=== PATIENT | female | born 1990 | race Caucasian/White ===

== ENCOUNTER 2016-10-16 12:30 | Emergency (ER) | payer MEDICAID ==
[2016-10-16 12:43] VITALS: BP 125/64
--- NOTE | 2016-10-16 13:46 | ED Physician Documentation ---
PD HPI UPPER EXT INJURY - Stated complaint Stated Complaint: L ARM INJ - Chief complaint Chief Complaint: Ext Problem - History obtained from History obtained from: Patient - History of Present Illness Location: Other (She was pulling a box off a shelf yesterday in her garage and the box kind of fell on her and she felt a pop in the back of the left shoulder and has persistent pain there that is much worse if she moves the left shoulder. No other injuries.) Review of Systems Constitutional: denies: Fever, Chills Cardiac: denies: Chest pain / pressure, Palpitations Respiratory: denies: Dyspnea, Cough GI: denies: Abdominal Pain : denies: Now [facility] PD PAST MEDICAL HISTORY - Present Medications Home Medications: Ambulatory Orders Medication Instructions Recorded Confirmed HYDROcod/ACETAM 5/325 [Sherman 5/325] 1 - 2 ea PO Q6H PRN #10 tablet 10/16/16 - Allergies Allergies/Adverse Reactions: Allergies Allergy/AdvReac Type Severity Reaction Status Date / Time No Known Drug Allergies Allergy Verified 10/16/16 12:43 PD ED PE NORMAL - Vitals Vital signs reviewed: Yes - General General: Alert and oriented X 3, No acute distress - HEENT HEENT: PERRL, EOMI - Neck Neck: Supple, no meningeal sign, No bony TTP - Extremities Extremities: Other (Left shoulder is mildly tender posteriorly, she is able to abduct fully but has a lot of pain past about 90 which is not present if we do it passively. She does have positive supraspinatus testing. Mattress Specialist strength, thumb extension, interossei strength is normal.) - Neuro Neuro: Alert and oriented X 3, Normal speech - Psych Psych: Normal mood, Normal affect Results - Vitals Vitals: Vital Signs - 24 hr 10/16/16 12:40 Temperature 36.4 C L Heart Rate 79 Respiratory 16 Rate Blood Pressure 125/64 O2 Saturation 100 PD MEDICAL DECISION MAKING - ED course ED course: 26-year-old woman with signs and symptoms of a partial rotator cuff tendinopathy , conservative treatment and exercises were advised initially. Departure - Departure Disposition: 01 Home, Self Care Clinical Impression: Tendinopathy of left rotator cuff Condition: Good Record reviewed to determine appropriate education?: Yes Instructions: ED Tendinitis Rotator Cuff, Pendulum Follow-Up: [facility] [Provider Group] - Within 1 week Prescriptions: HYDROcod/ACETAM 5/325 [Sherman 5/325] 1 - 2 ea PO Q6H PRN #10 tablet PRN Reason: Pain Forms: Activity restrictions
== END 2016-10-16 13:53 | disposition home or self-care (01) ==
LOC: ED 12:30
DX: S46.002A Unspecified injury of muscle(s) and tendon(s) of the rotator cuff of left shoulder, initial encounter (principal); W22.8XXA Striking against or struck by other objects, initial encounter; Y93.89 Activity, other specified; Y92.59 Other trade areas as the place of occurrence of the external cause
CPT/HCPCS: 99282; 99283